=== PATIENT | female | born 1980 | race Caucasian/White ===

== ENCOUNTER 2016-05-12 15:33 | Outpatient (CLI) | payer OTHER, MEDICAID ==
--- NOTE | 2016-05-12 16:37 | Non Stress Test Report ---
Non Stress Test Datetime Report Generated by CPN: 05/12/2016 16:36 INDICATION Indication for Study: Ordered by Provider Indication for Study (NST) Other: nst MONITORING Monitor Explained: Monitor Explained; Test Explained; Patient Verbalized Understanding Time on Monitor: 05/12/2016 16:00 Time off Monitor: 05/12/2016 16:30 NST Duration: 30 NST INTERVENTIONS NST Interventions: PO Hydration BABY A: [id number] BABY A Movement : Present Contraction Frequency : x1 FHR Baseline : 130 Accelerations : 15X15 Decelerations : None Variability : Moderate 6-25bpm NST Review: Meets Criteria for Reactive NST NST Review and Verified By : K Stephen RNC NST Results: Reactive NST REPORT Report Trigger: Send Report
== END 2016-05-12 16:43 | disposition home or self-care (01) ==
LOC: LC 15:33
PROVIDERS: ATTEND Obstetrics & Gynecology
PROC: 4A1HXCZ Monitoring of Products of Conception, Cardiac Rate, External Approach (ICD-10-PCS; principal; 2016-05-12)
DX: Z34.93 Encounter for supervision of normal pregnancy, unspecified, third trimester (principal); Z36 Encounter for antenatal screening of mother; Z3A.35 35 weeks gestation of pregnancy
CPT/HCPCS: 59025

== ENCOUNTER 2016-05-19 12:20 | Outpatient (CLI) | payer OTHER, MEDICAID | END 2016-05-19 12:55 | disposition home or self-care (01) | LOC: LC 12:20 | PROVIDERS: ATTEND Obstetrics & Gynecology | PROC: 4A1HXCZ Monitoring of Products of Conception, Cardiac Rate, External Approach (ICD-10-PCS; principal; 2016-05-19) | DX: Z34.93 Encounter for supervision of normal pregnancy, unspecified, third trimester (principal); Z36 Encounter for antenatal screening of mother; Z3A.38 38 weeks gestation of pregnancy | CPT/HCPCS: 59025 ==

== ENCOUNTER 2016-05-29 16:41 | Outpatient (CLI) | payer OTHER, MEDICAID ==
--- NOTE | 2016-05-29 17:21 | Non Stress Test Report ---
Non Stress Test Datetime Report Generated by CPN: 05/29/2016 17:21 DEMOGRAPHIC EGA NST: 36.2 INDICATION Indication for Study: Ordered by Provider Indication for Study: Ordered by Provider Indication for Study (NST) Other: repeat from office Indication for Study (NST) Other: nst for decreased movement VITAL SIGNS Temperature - NST: 98.1 MONITORING Monitor Explained: Monitor Explained; Test Explained; Patient Verbalized Understanding Monitor Explained: Monitor Explained; Test Explained; Patient Verbalized Understanding Time on Monitor: 05/29/2016 16:49 Time on Monitor: 05/19/2016 12:33 Time off Monitor: 05/29/2016 17:12 NST Duration: 23 NST INTERVENTIONS NST Interventions: PO Hydration; Reposition Patient NST Interventions: PO Hydration; Reposition Patient Physician Notified NST: Dr. Dickerson BABY A: [id number] BABY A Movement : Present Contraction Frequency : occassional Contraction Frequency : rare FHR Baseline : 125 FHR Baseline : 130 Accelerations : 15X15 Accelerations : 15X15 Decelerations : None Decelerations : None Variability : Moderate 6-25bpm Variability : Moderate 6-25bpm NST Review: Meets Criteria for Reactive NST NST Review and Verified By : Yi SAENZ NST Results: Reactive NST REPORT Report Trigger: Send Report
--- NOTE | 2016-05-29 20:29 | L&D Discharge Summary ---
OB Discharge Summary Datetime Report Generated by CPN: 05/29/2016 20:29 DISCHARGE DIAGNOSIS Diagnosis/Symptoms: Decreased Movement Diagnoses/Symptoms Other: GDM DIET/ACTIVITY/RESTRICTIONS Diet: Regular Activity: Normal Activity TEACHING/INSTRUCTIONS/REFERRALS Instructions Given To: patient Instructions Understood: Patient Verbalized Understanding Referrals: None Educational Materials- Other: follow up and movement discaussed DISCHARGE INFORMATION Discharged AMA: No Discharge Date/Time: 05/19/2016 12:53 Discharged To: Home Discharge Provider Name: C Pa CNM Accompanied By: and son Discharge Method: Ambulatory Condition: Stable FOLLOW UP INFORMATION Follow Up With: [facility] Follow Up On: As Scheduled Follow Up Phone Number: [facility] -
--- NOTE | 2016-06-04 22:47 | L&D General Admission ---
General Admit Datetime Report Generated by CPN: 06/04/2016 22:45 INFORMATION Patient Age: 35 (03/31/2016 15:57:QS system process) EDC: 06/24/2016 00:00 (05/29/2016 16:54:Dyan Bellavance, RNC) CARE Height (in): 61 (05/29/2016 17:21:QS system process) Height (in): 61 (05/19/2016 12:44:QS system process) Height (in): 61 (05/12/2016 16:39:QS system process) ALLERGIES Medication Allergies: No Known Allergies (05/12/2016) (05/12/2016 16:38:QS system process) DEMOGRAPHICS Address: [address] [place] [id number] (03/31/2016 15:57:QS system process) Zipcode: [address] (03/31/2016 15:57:QS system process) Home (03/31/2016 15:57:QS system process) N: [phone] (03/31/2016 15:57:QS system process) Next of Kin Name: NELLA LARSON (05/12/2016 15:33:QS system process) Next of Kin Name: PT SUSHIL (03/31/2016 15:57:QS system process) Next of Kin (05/12/2016 15:33:QS system process) Next of Kin (03/31/2016 15:57:QS system process) Next of Kin Relationship: OR (05/12/2016 15:33:QS system process) Next of Kin Relationship: UNK (03/31/2016 15:57:QS system process) Date of : 1980 (03/31/2016 15:57:QS system process) Marital Status: Single (05/12/2016 15:33:QS system process) Marital Status: Unknown (03/31/2016 15:57:QS system process) Sex: Female (03/31/2016 15:57:QS system process) Race: (05/12/2016 15:33:QS system process) Race: Unknown (03/31/2016 15:57:QS system process) Ethnicity: Non- or (05/12/2016 15:33:QS system process) Ethnicity: Unable to Obtain (03/31/2016 15:57:QS system process) Gnosticist: None (05/12/2016 15:33:QS system process)
--- NOTE | 2016-06-04 22:47 | L&D Discharge Summary ---
OB Discharge Summary Datetime Report Generated by CPN: 06/04/2016 22:45 DISCHARGE DIAGNOSIS Diagnosis/Symptoms: Decreased Movement Diagnoses/Symptoms Other: GDM Gestation: 36.2 DIET/ACTIVITY/RESTRICTIONS Diet: Regular Activity: Normal Activity TEACHING/INSTRUCTIONS/REFERRALS Instructions Given To: patient Instructions Understood: Patient Verbalized Understanding Referrals: None Educational Materials- Other: follow up and movement discaussed DISCHARGE INFORMATION Discharged AMA: No Discharge Date/Time: 05/19/2016 12:53 Discharged To: Home Discharge Provider Name: C Pa CNM Accompanied By: and son Discharge Method: Ambulatory Condition: Stable FOLLOW UP INFORMATION Follow Up With: [facility] Follow Up On: As Scheduled Follow Up Phone Number: [facility] -
--- NOTE | 2016-06-05 04:47 | L&D General Admission ---
General Admit Datetime Report Generated by CPN: 06/05/2016 04:45 INFORMATION Patient Age: 35 (03/31/2016 15:57:QS system process) EDC: 06/24/2016 00:00 (05/29/2016 16:54:Dyan Bellavance, RNC) CARE Height (in): 61 (05/29/2016 17:21:QS system process) Height (in): 61 (05/19/2016 12:44:QS system process) Height (in): 61 (05/12/2016 16:39:QS system process) ALLERGIES Medication Allergies: No Known Allergies (05/12/2016) (05/12/2016 16:38:QS system process) DEMOGRAPHICS Address: [address] [place] [id number] (03/31/2016 15:57:QS system process) Zipcode: [address] (03/31/2016 15:57:QS system process) Home (03/31/2016 15:57:QS system process) N: [phone] (03/31/2016 15:57:QS system process) Next of Kin Name: NELLA LARSON (05/12/2016 15:33:QS system process) Next of Kin Name: PT SUSHIL (03/31/2016 15:57:QS system process) Next of Kin (05/12/2016 15:33:QS system process) Next of Kin (03/31/2016 15:57:QS system process) Next of Kin Relationship: OR (05/12/2016 15:33:QS system process) Next of Kin Relationship: UNK (03/31/2016 15:57:QS system process) Date of : 1980 (03/31/2016 15:57:QS system process) Marital Status: Single (05/12/2016 15:33:QS system process) Marital Status: Unknown (03/31/2016 15:57:QS system process) Sex: Female (03/31/2016 15:57:QS system process) Race: (05/12/2016 15:33:QS system process) Race: Unknown (03/31/2016 15:57:QS system process) Ethnicity: Non- or (05/12/2016 15:33:QS system process) Ethnicity: Unable to Obtain (03/31/2016 15:57:QS system process) Buddhist: None (05/12/2016 15:33:QS system process)
--- NOTE | 2016-06-05 04:47 | L&D Discharge Summary ---
OB Discharge Summary Datetime Report Generated by CPN: 06/05/2016 04:45 DISCHARGE DIAGNOSIS Diagnosis/Symptoms: Decreased Movement Diagnoses/Symptoms Other: GDM Gestation: 36.2 DIET/ACTIVITY/RESTRICTIONS Diet: Regular Activity: Normal Activity TEACHING/INSTRUCTIONS/REFERRALS Instructions Given To: patient Instructions Understood: Patient Verbalized Understanding Referrals: None Educational Materials- Other: follow up and movement discaussed DISCHARGE INFORMATION Discharged AMA: No Discharge Date/Time: 05/19/2016 12:53 Discharged To: Home Discharge Provider Name: C Pa CNM Accompanied By: and son Discharge Method: Ambulatory Condition: Stable FOLLOW UP INFORMATION Follow Up With: [facility] Follow Up On: As Scheduled Follow Up Phone Number: [facility] -
--- NOTE | 2016-06-05 10:47 | L&D General Admission ---
General Admit Datetime Report Generated by CPN: 06/05/2016 10:45 INFORMATION Patient Age: 35 (03/31/2016 15:57:QS system process) EDC: 06/24/2016 00:00 (05/29/2016 16:54:Dyan Bellavance, RNC) CARE Height (in): 61 (05/29/2016 17:21:QS system process) Height (in): 61 (05/19/2016 12:44:QS system process) Height (in): 61 (05/12/2016 16:39:QS system process) ALLERGIES Medication Allergies: No Known Allergies (05/12/2016) (05/12/2016 16:38:QS system process) DEMOGRAPHICS Address: [address] [place] [id number] (03/31/2016 15:57:QS system process) Zipcode: [address] (03/31/2016 15:57:QS system process) Home (03/31/2016 15:57:QS system process) N: [phone] (03/31/2016 15:57:QS system process) Next of Kin Name: NELLA LARSON (05/12/2016 15:33:QS system process) Next of Kin Name: PT SUSHIL (03/31/2016 15:57:QS system process) Next of Kin (05/12/2016 15:33:QS system process) Next of Kin (03/31/2016 15:57:QS system process) Next of Kin Relationship: OR (05/12/2016 15:33:QS system process) Next of Kin Relationship: UNK (03/31/2016 15:57:QS system process) Date of : 1980 (03/31/2016 15:57:QS system process) Marital Status: Single (05/12/2016 15:33:QS system process) Marital Status: Unknown (03/31/2016 15:57:QS system process) Sex: Female (03/31/2016 15:57:QS system process) Race: (05/12/2016 15:33:QS system process) Race: Unknown (03/31/2016 15:57:QS system process) Ethnicity: Non- or (05/12/2016 15:33:QS system process) Ethnicity: Unable to Obtain (03/31/2016 15:57:QS system process) Shinto: None (05/12/2016 15:33:QS system process)
--- NOTE | 2016-06-05 10:47 | L&D Discharge Summary ---
OB Discharge Summary Datetime Report Generated by CPN: 06/05/2016 10:45 DISCHARGE DIAGNOSIS Diagnosis/Symptoms: Decreased Movement Diagnoses/Symptoms Other: GDM Gestation: 36.2 DIET/ACTIVITY/RESTRICTIONS Diet: Regular Activity: Normal Activity TEACHING/INSTRUCTIONS/REFERRALS Instructions Given To: patient Instructions Understood: Patient Verbalized Understanding Referrals: None Educational Materials- Other: follow up and movement discaussed DISCHARGE INFORMATION Discharged AMA: No Discharge Date/Time: 05/19/2016 12:53 Discharged To: Home Discharge Provider Name: C Pa CNM Accompanied By: and son Discharge Method: Ambulatory Condition: Stable FOLLOW UP INFORMATION Follow Up With: [facility] Follow Up On: As Scheduled Follow Up Phone Number: [facility] -
== END 2016-05-29 17:15 | disposition home or self-care (01) ==
LOC: LC 16:41
PROVIDERS: ATTEND Obstetrics & Gynecology
PROC: 4A1HXCZ Monitoring of Products of Conception, Cardiac Rate, External Approach (ICD-10-PCS; principal; 2016-05-29)
DX: O24.419 Gestational diabetes mellitus in pregnancy, unspecified control (principal); Z3A.36 36 weeks gestation of pregnancy
CPT/HCPCS: 59025

== ENCOUNTER 2016-06-17 05:02 | Inpatient (IN) | payer MEDICAID, OTHER ==
[2016-06-16 12:25] LABS: ABSOLUTE LYMPHOCYTES (AUTO) 1.2 10^3/uL (0.5-4.7); ABSOLUTE MONOCYTES (AUTO) 0.5 10^3/uL (0.1-1.4); ABSOLUTE NEUT (AUTO) 5.9 10^3/uL (1.7-8.2); BASOPHILS % (AUTO) 0.3 % (0-2); EOSINOPHILS % (AUTO) 0.6 % (0-6); HEMATOCRIT 35.3 % (36.0-47.0); HEMOGLOBIN 12.2 g/dL (12.0-15.5); HGB HCT DIFFERENCE 1.3; LYMPHOCYTES % (AUTO) 15.3 % (13-45); MEAN CORPUSCULAR HEMOGLOBIN 32.1 pg (27.0-33.4); MEAN CORPUSCULAR HGB CONC 34.6 g/dL (32.0-36.0); MEAN CORPUSCULAR VOLUME 93 fl (80-97); MONOCYTES % (AUTO) 6.5 % (3-13); RED BLOOD COUNT 3.81 10^6/uL (3.72-5.28); RED CELL DISTRIBUTION WIDTH 13.1 % (11.5-14.0); SEGMENTED NEUTROPHILS % (AUTO) 77.3 % (42-78); WHITE BLOOD COUNT 7.6 10^3/uL (4.0-10.5)
[2016-06-16 12:31] LABS: APPEARANCE,URINE CLEAR; BILIRUBIN,URINE NEGATIVE (NEGATIVE); GLUCOSE, URINE NEGATIVE (NEGATIVE); KETONES,URINE NEGATIVE (NEGATIVE); LEUKOCYTE ESTERASE,URINE TRACE (NEGATIVE); NITRITE,URINE NEGATIVE (NEGATIVE); PROTEIN,URINE NEGATIVE (NEGATIVE); URINE SPECIFIC GRAVITY 1.011; UROBILINOGEN,URINE NEGATIVE mg/dL (<2.0)
[2016-06-16 12:48] LABS: URINE BARBITURATES SCREEN NEGATIVE; URINE METHADONE SCREEN NEGATIVE; URINE OPIATES LOW NEGATIVE; URINE PHENCYCLIDINE SCREEN NEGATIVE
[~2016-06-17 05:02] MED LIST: CEFAZOLIN 2 GM/D5W RTU 2 GM/50 ML RTUPB IV PRN; LIDOCAINE 0.5% INJ-PF (5 MG/ML) 50 ML SDV SUBCUT PRN; RINGERS SOLUTION,LACTATED 1,500 ML IV PRN
[2016-06-17] MEDS ORDERED: OXYTOCIN/NORMAL SALINE 20 UNIT/1,000 ML RTUINJ ONE (07:06)
[2016-06-17] MEDS ORDERED: MIDAZOLAM 2 MG/2 ML INJ ONE (07:06)
[2016-06-17] MEDS ORDERED: FENTANYL CITRATE INJ/PF 100 MCG/2 ML AMPUL ONE (07:06)
[2016-06-17] MEDS ORDERED: EPHEDRINE SULFATE INJ 50 MG/1 ML AMPULE ONE (07:06)
[2016-06-17] MEDS ORDERED: OXYTOCIN 10 UNIT/ML VIAL ONE (07:06)
[2016-06-17] MEDS ORDERED: ACETAMINOPHEN 100 ML IV ONE (07:07)
[2016-06-17] MEDS ORDERED: DIPHENHYDRAMINE HCL 50 MG/ML VIAL IV PRN (07:24)
[2016-06-17] MEDS ORDERED: MORPHINE SULFATE 10 MG/ML INJ IV PRN (07:24)
[2016-06-17] MEDS ORDERED: FENTANYL CITRATE INJ/PF 100 MCG/2 ML AMPUL IV PRN ×3 (07:24)
[2016-06-17] MEDS ORDERED: OXYCODONE-ACETAMINOPHEN 5-325 MG TABLET PO PRN ×4 (07:24→09:22)
[2016-06-17] MEDS ORDERED: MEPERIDINE HCL/PF INJ 25 MG/1 ML DISP.SYRIN IV PRN (07:24)
[2016-06-17] MEDS ORDERED: PROMETHAZINE HCL INJ 25 MG/1 ML VIAL IV PRN ×3 (07:24→09:22)
[2016-06-17] MEDS ORDERED: HYDROMORPHONE HCL INJ/PF 2 MG/ML AMPULE IV PRN (09:22)
[2016-06-17] MEDS ORDERED: MEASLES,MUMPS&RUBELLA VACC/PF 0.5 ML VIAL SUBCUT PRN (09:22)
[2016-06-17] MEDS ORDERED: SIMETHICONE 80 MG TAB.CHEW PO PRN (09:22)
[2016-06-17] MEDS ORDERED: DIPH/PERTUSS(ACELL)/TETANUS VAC/PF 0.5 ML SYR (>=10YO) IM PRN (09:22)
[2016-06-17] MEDS ORDERED: ACETAMINOPHEN 325 MG TABLET PO PRN (09:22)
[2016-06-17] MEDS ORDERED: OXYTOCIN/NORMAL SALINE 1,000 ML IV PRN (09:22)
--- NOTE | 2016-06-17 09:28 | Brief Operative Note ---
BRIEF OPERATIVE REPORT DATE OF SURGERY: 06/17/16 TIME OF SURGERY: 08:00 PREOPERATIVE DIAGNOSIS: A2GDM, PUND at 39+0ega, Undesired Fertility, H/o prior c /s POSTOPERATIVE DIAGNOSIS: PEDRO - delivered SURGEON: CHRISTIANO HATFIELD FINDINGS: normal bilateral tubes - Zeus BTL performed - hemostatic, normal bilateral ovaries, normal uterus, rectus diastasis and rectus muscle closure hemostatic and surgicel placed. Interceed placed over bladder flap closure. VFI cephalic, Apgars 7/8, weight 3505g COMPLICATIONS: none ESTIMATED BLOOD LOSS: 600ml TISSUE REMOVED OR ALTERED: bilateral portions of fallopian tubes - sent to pathology, placenta and cord not sent to pathology TECHNICAL PROCEDURE: RELTCS with [facility]
[2016-06-17] MEDS: DOCUSATE SODIUM 100 MG CAPSULE PO SCH ×2 (10:48→18:57)
[2016-06-17] MEDS: PRENATAL VITAMIN W-O CA NO5/FE FUMARATE/FA CAPSULE PO SCH (10:48)
--- NOTE | 2016-06-17 10:55 | PDOC DELIVERY SUMMARY ---
Delivery Summary - Maternal Hx : II Hx Para: I - now para II Hx # Term Pregnancies: 1 Hx # Pregnancies: 0 Hx Total # of Abortions (Sponateous & Elective): 0 Number of Living Children: 1 FREDDY: 06/24/16 Gestational Age: 39+0 Risk Factors: Previous , Gestational Diabetes Ruptured Membranes: AROM Fluids: Clear - Delivery Labor: Not In Labor Presentation: Vertex Heart Rate Monitoring: Done Pre-Operatively Uterine Contraction Monitoring: External Support Person Present: Yes Location: OR : Scheduled Placenta: Within Normal Limits Placenta Description: normal appearing placenta and cord Number of Vessels (Cord): 3 Nuchal Cord: No Delivery of Placenta Date: 06/17/16 Delivery of Placenta Time: 08:22 - Medications Type of Anesthesia:: Spinal - Intrapartum Medications Intrapartum Medications: pitocin 20 units - Infant Assess and Care Baby 1 Female Delivery of Date: 06/17/16 Delivery of Infant Time: 08:20 at 1 minute: 7 at 5 minutes: 8 Preprinted Number On Band: [id number] Skin to Skin: No - out of OR 919 To Nursery At: 08:29 Mode of Transport: Bassinet Infant Weight: 3505 kg Length: 21 in - Delivery Personnel Nursery RN: ALEXANDRU CHEN Nursery RN: IGNACIO UMAÑA MD: CHRISTIANO HATFIELD Generating Plant Superintendent: MELISA WINTER
[2016-06-17] MEDS ORDERED: KETOROLAC TROMETHAMINE 60 MG/2 ML SDV ONE (14:09)
[2016-06-17] MEDS ORDERED: DEXAMETHASONE SOD PHOSPHATE INJ 4 MG/1 ML VIAL ONE (14:09)
[2016-06-17] MEDS ORDERED: PHENYLEPHRINE HCL INJ/PF 10 MG/1 ML SDV ONE (14:09)
[2016-06-17] MEDS ORDERED: METOCLOPRAMIDE HCL INJ/PF 10 MG/2 ML SDV ONE (14:09)
[2016-06-17] MEDS ORDERED: ONDANSETRON HCL INJ/PF 4 MG/2 ML SDV ONE (14:09)
[2016-06-17] MEDS: KETOROLAC TROMETHAMINE INJ/PF 30 MG/1 ML SDV IV SCH ×2 (14:49→18:57)
[2016-06-17] MEDS: LACTATED RINGERS 1000 ML IV PRN ×2 (16:09→21:04)
[2016-06-17] MEDS ORDERED: RINGERS SOLUTION,LACTATED 500 ML IV PRN (20:42)
[2016-06-18] MEDS: KETOROLAC TROMETHAMINE INJ/PF 30 MG/1 ML SDV IV SCH (02:32)
[2016-06-18] MEDS: IBUPROFEN 800 MG TABLET PO SCH ×4 (05:02→23:55)
[2016-06-18 08:01] LABS: HEMATOCRIT 31.7 % (36.0-47.0); HEMOGLOBIN 10.7 g/dL (12.0-15.5); HGB HCT DIFFERENCE 0.4; MEAN CORPUSCULAR HEMOGLOBIN 31.5 pg (27.0-33.4); MEAN CORPUSCULAR HGB CONC 33.6 g/dL (32.0-36.0); MEAN CORPUSCULAR VOLUME 94 fl (80-97); RED BLOOD COUNT 3.38 10^6/uL (3.72-5.28); RED CELL DISTRIBUTION WIDTH 13.3 % (11.5-14.0); WHITE BLOOD COUNT 11.3 10^3/uL (4.0-10.5)
--- NOTE | 2016-06-18 09:14 | PDOC PROGRESS REPORT ---
Subjective-OB Subjective: Post Delivery Day: 35 year old. Denies any needs at this time Doing well, minimal incisional pain, OOB walking to BR, no flatus, breast feeding, scant lochia Physical Exam (OB) Vital Signs: Temp Pulse Resp BP Pulse Ox 98.0 F 74 18 114/63 98 06/18/16 04:43 06/18/16 04:43 06/18/16 04:43 06/18/16 04:43 06/18/16 04:43 Intake & Output 06/17/16 06/18/16 06/19/16 06:59 06:59 06:59 Intake Total 2024 Output Total 2399 Balance -375 Weight 110 kg - PIH/Pre-Eclampsia Headache: Absent Visual Changes: No - Dressing Removed: No Incision: Open Closure Type: Surgical Glue - Lochia Lochia Amount: Small 10-25 ml Lochia Color: Rubra/Red - Abdomen Description: Soft, Round Hernia Present: No Fundal Description: Firm, Midline Fundal Height: u/u - u/2 Objective-Diagnostic Laboratory: 06/18/16 07:05 06/18/16 07:05 WBC 11.3 H RBC 3.38 L Hgb 10.7 L Hct 31.7 L MCV 94 MCH 31.5 MCHC 33.6 RDW 13.3 Plt Count 164 Assessment and Plan(PN) - Assessment and Plan (1) Gestational diabetes mellitus Qualifiers: Gestational diabetes mellitus control: oral hypoglycemic-controlled Trimester: second trimester Qualified Code(s): O24.415 - Gestational diabetes mellitus in , controlled by oral hypoglycemic drugs Is this a current diagnosis for this admission?: Yes (2) Obesity complicating Qualifiers: Trimester: first trimester Qualified Code(s): O99.211 - Obesity complicating , first trimester Is this a current diagnosis for this admission?: Yes (3) Status post repeat low transverse section Is this a current diagnosis for this admission?: Yes - Disposition Anticipated Discharge: Home Within: within 24 hours
[2016-06-18] MEDS: DOCUSATE SODIUM 100 MG CAPSULE PO SCH ×2 (09:50→17:12)
[2016-06-18] MEDS: PRENATAL VITAMIN W-O CA NO5/FE FUMARATE/FA CAPSULE PO SCH (09:50)
[2016-06-19] MEDS: IBUPROFEN 800 MG TABLET PO SCH ×2 (05:06→17:12)
--- NOTE | 2016-06-19 08:30 | PDOC PROGRESS REPORT ---
Subjective-OB Subjective: Post Delivery Day: 35 year old. Denies any needs at this time. Ready to go home. Physical Exam (OB) Vital Signs: Temp Pulse Resp BP Pulse Ox 98.6 F 83 17 118/78 99 06/19/16 07:13 06/19/16 07:13 06/19/16 07:13 06/19/16 07:13 06/19/16 07:13 Intake & Output 06/18/16 06/19/16 06/20/16 06:59 06:59 06:59 Intake Total 2024 Output Total 0 Balance -375 - PIH/Pre-Eclampsia Clonus: Negative Headache: Absent Visual Changes: No - Dressing Removed: No Incision: Open Closure Type: Surgical Glue - Lochia Lochia Amount: Scant < 10 ml Lochia Color: Rubra/Red - Abdomen Description: Soft, Round Hernia Present: No Bowel Sounds: Normoactive Flatus Presence: Present Stool: No Fundal Description: Firm, Midline Fundal Height: u/u - u/2 Objective-Diagnostic Laboratory: 06/18/16 07:05 Assessment and Plan(PN) - Disposition Anticipated Discharge: Home
--- NOTE | 2016-06-19 09:20 | PDOC DISCHARGE SUMMARY ---
Final Diagnosis Discharge Date: 06/19/16 - Final Diagnosis (1) Gestational diabetes mellitus Is this a current diagnosis for this admission?: Yes (2) Obesity complicating Is this a current diagnosis for this admission?: Yes (3) Positive GBS test Is this a current diagnosis for this admission?: Yes (4) Status post repeat low transverse section Is this a current diagnosis for this admission?: Yes (5) Vitamin D deficiency Is this a current diagnosis for this admission?: Yes Discharge Data - Discharge Medication Home Medications: Vit #76/Iron,Carb/FA [Prenatabs Rx Tablet] 1 tab PO DAILY 05/12/16 Docusate Sodium [Colace 100 mg Capsule] 100 mg PO BID #30 capsule 06/19/16 Ibuprofen [Motrin 800 mg Tablet] 800 mg PO Q6 #30 tablet 06/19/16 Oxycodone HCl/Acetaminophen [Percocet 5-325 mg Tablet] 1 tab PO Q4HP PRN #20 tablet 06/19/16 Gestational Age: 39 wks Reason(s) for Admission: Ceasarean Section-Repeat, Gestional Diabetes Procedures: NST, Ultrasound Intrapartum Procedure(s): : Low Cervical, Transverse - Data Baby 1 Female at 1 minute: 7 at 5 minutes: 8 Weight: 3505 kg Home with Mother: Yes Complications: No - Diagnosis Test Laboratory: Temp Pulse Resp BP Pulse Ox 98.6 F 83 17 118/78 99 06/19/16 07:13 06/19/16 07:13 06/19/16 07:13 06/19/16 07:13 06/19/16 07:13 06/16/16 06/16/16 06/18/16 11:45 11:50 07:05 RBC 3.81 3.38 L Hgb 12.2 10.7 L Hct 35.3 L 31.7 L Urine Opiates Screen NEGATIVE - Discharge information/Instructions Discharge Activity: Activity As Tolerated, Balance Activity w/Rest, No Driving, No Lifting Over 10 Pounds, No Lifting/Push/Pulling, Non-Ambulatory Child, Pelvic Rest, Slowly Increase Activity, No tub bath Discharge Diet: Regular Disposition: HOME, SELF-CARE Follow up with: [facility] in: 1, Weeks
[2016-06-19] MEDS: DOCUSATE SODIUM 100 MG CAPSULE PO SCH (17:11)
[2016-06-19 17:12] VITALS: BP 118/74
== END 2016-06-19 18:51 | disposition home or self-care (01) | DRG 766 ==
LOC: 2S 05:02
PROVIDERS: ADMIT Student in an Organized Health Care Education/Training Program; ATTEND Student in an Organized Health Care Education/Training Program
PROC: 0UB70ZZ Excision of Bilateral Fallopian Tubes, Open Approach (ICD-10-PCS; 2016-06-17)
PROC: 10D00Z1 Extraction of Products of Conception, Low, Open Approach (ICD-10-PCS; principal; 2016-06-17 07:45)
DX: O34.211 Maternal care for low transverse scar from previous cesarean delivery (principal); Z37.0 Single live birth; O24.425 Gestational diabetes mellitus in childbirth, controlled by oral hypoglycemic drugs; O99.824 Streptococcus B carrier state complicating childbirth; O99.214 Obesity complicating childbirth; O75.89 Other specified complications of labor and delivery; E55.9 Vitamin D deficiency, unspecified; Z3A.39 39 weeks gestation of pregnancy; Z68.37 Body mass index [BMI] 37.0-37.9, adult; Z30.2 Encounter for sterilization
CPT/HCPCS: 1961; 36415; 59025; 80307; 81001; 82962; 85025; 85027; 86850; 86900; 86901; 88302; 90715; 94799; C1765; J0131; J1100; J1170; J1885; J2250; J2370; J2405; J2590; J2765; J3010; J3490; J7120

== ENCOUNTER 2016-11-17 14:54 | Emergency (ER) | payer MEDICAID, OTHER ==
[2016-11-17] MEDS ORDERED: SULFAMETHOXAZOLE/TRIMETHOPRIM 800-160 MG TABLET PO ONE (15:37)
[2016-11-17] MEDS ORDERED: CEPHALEXIN 500 MG CAPSULE PO ONE (15:37)
--- NOTE | 2016-11-17 15:41 | ER Document Report ---
HPI - HPI Patient complains to provider of: Right hand pain Onset: Other - 3 weeks Onset/Duration: Persistent Quality of pain: Achy Pain Level: 2 Context: Patient complains of tender nodule the palmar surface of right hand for the past 3 weeks. 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 Patient states she poked a needle in the nodule about a week ago. Patient denies any fever. Patient is right-hand dominant. Associated Symptoms: Other - Right hand pain Exacerbated by: Movement Relieved by: Denies Similar symptoms previously: No Recently seen / treated by doctor: No - ROS ROS below otherwise negative: Yes Systems Reviewed and Negative: Yes All other systems reviewed and negative - CONSTITUTIONAL Constitutional: DENIES: Fever, Chills - NEURO Neurology: DENIES: Weakness - MUSCULOSKELETAL Musculoskeletal: REPORTS: Extremity pain - DERM Skin Color: Normal Notes: Tender nodule to hand Past Medical History - General Information source: Patient - Social History Smoking Status: Never Smoker Frequency of alcohol use: None Drug Abuse: None Occupation: Beautician Lives with: Family Family History: Reviewed & Not Pertinent - Medical History Medical History: Negative Renal/ Medical History: Denies: Hx Peritoneal Dialysis Past Surgical History: Reports: Hx Section Vertical Provider Document - CONSTITUTIONAL Agree With Documented VS: Yes Exam Limitations: No Limitations General Appearance: WD/WN, No Apparent Distress - INFECTION CONTROL TRAVEL OUTSIDE OF THE [place] IN LAST 30 DAYS: No - HEENT HEENT: Atraumatic, Normocephalic - NECK Neck: Normal Inspection - RESPIRATORY Respiratory: No Respiratory Distress O2 Sat by Pulse Oximetry: 97 - CARDIOVASCULAR Pulses: Normal: Radial - MUSCULOSKELETAL/EXTREMETIES Musculoskeletal/Extremeties: MAEW, FROM, Tender - Tenderness to the palmar surface of right hand involving .5 cm mobile nodular lesion - NEURO Level of Consciousness: Awake, Alert, Appropriate Motor/Sensory: No Motor Deficit - DERM Integumentary: Warm, Dry. negative: Abscess Notes: Normal skin color and temperature to nodular lesion in the palmar surface of right hand, no concern for drainable abscess at this time. No lymphangitis. No obvious foreign body Course - Re-evaluation Re-evalutation: 11/17/[address] Leiva regarding patient presentation, agrees with discharge plan of care and treating patient with antibiotics at this time. - Vital Signs Vital signs: Temp Pulse Resp BP Pulse Ox 98.7 F 73 20 124/90 H 97 11/17/16 14:58 11/17/16 14:58 11/17/16 14:58 11/17/16 14:58 11/17/16 14:58 Discharge - Discharge Clinical Impression: Hand pain, right, concern about hair splinter Condition: Stable Disposition: HOME, SELF-CARE Instructions: Cephalexin ([facility]), Retained Subcutaneous Foreign Object ([facility]), Trimethoprim-Sulfa ([facility]) Additional Instructions: Return immediately for any new or worsening symptoms Followup with hand surgeon, call tomorrow to make a followup appointment Prescriptions: Cephalexin Monohydrate [Keflex 500 mg Capsule] 500 mg PO Q6H 5 Days capsule Naproxen [Naprosyn 250 Nmg Tablet] 1 tab PO BID #14 tablet Sulfamethoxazole/Trimethoprim [Bactrim Ds Tablet] 1 each PO BID #20 tablet Referrals: RENEE COLE DO [ACTIVE STAFF] - Follow up tomorrow
[2016-11-17 16:20] VITALS: BP 117/76
== END 2016-11-17 16:10 | disposition home or self-care (01) ==
LOC: ER 14:54
DX: M79.641 Pain in right hand (principal)
CPT/HCPCS: 99283

== ENCOUNTER 2017-02-06 12:12 | Emergency (ER) | payer OTHER ==
[2017-02-06 12:18] VITALS: BP 118/81
--- NOTE | 2017-02-06 12:24 | ER Document Report ---
ED Medical Screen (RME) - General Chief Complaint: Rectal Pain Stated Complaint: RECTAL PAIN Time Seen by Provider: 02/06/17 12:22 Notes: 36-year-old female patient reports 1 week history of painful swelling at the rectum. She thinks it is a hemorrhoid. There is been no bleeding. She has tried hemorrhoid ointment without benefit, it has been getting worse. I have greeted and performed a rapid initial assessment of this patient. A comprehensive ED assessment and evaluation of the patient, analysis of test results and completion of the medical decision making process will be conducted by additional ED providers. TRAVEL OUTSIDE OF THE [place] IN LAST 30 DAYS: No - Related Data Allergies/Adverse Reactions: No Known Allergies Allergy (Verified 02/06/17 12:13) Past Medical History Renal/ Medical History: Denies: Hx Peritoneal Dialysis Past Surgical History: Reports: Hx Section Physical Exam - Vital signs Vitals: Temp Pulse Resp BP Pulse Ox 98.3 F 64 16 118/81 96 02/06/17 12:18 02/06/17 12:18 02/06/17 12:18 02/06/17 12:18 02/06/17 12:18 Course - Vital Signs Vital signs: Temp Pulse Resp BP Pulse Ox 98.3 F 64 16 118/81 96 02/06/17 12:18 02/06/17 12:18 02/06/17 12:18 02/06/17 12:18 02/06/17 12:18
[2017-02-06] MEDS ORDERED: HYDROCORTISONE 1% CREAM 28.35 GM TP ONE (12:50)
[2017-02-06] MEDS ORDERED: HYDROCORTISONE ACETATE 25 MG SUPP.RECT PR ONE (12:50)
--- NOTE | 2017-02-06 12:52 | ER Document Report ---
ED GI Bleed / Rectal Pain - General Chief Complaint: Rectal Pain Stated Complaint: RECTAL PAIN Time Seen by Provider: 02/06/17 12:22 Mode of Arrival: Ambulatory Information source: Patient Notes: Patient is a 36-year-old female who presents to the ER today for 4 days of rectal pain, first just been having bowel movements, now constantly. Patient states that she has been having normal bowel movements, not hard and not soft, no diarrhea. She denies any bleeding from the rectum or with bowel movements. She states that she thinks she may have a hemorrhoid. She has been trying over- the-counter hemorrhoid relief without resolve. TRAVEL OUTSIDE OF THE [place] IN LAST 30 DAYS: No - Related Data Allergies/Adverse Reactions: No Known Allergies Allergy (Verified 02/06/17 12:13) Past Medical History - General Information source: Patient - Social History Smoking Status: Never Smoker Chew tobacco use (# tins/day): No Frequency of alcohol use: Rare Drug Abuse: None Family History: Reviewed & Not Pertinent Patient has suicidal ideation: No Patient has homicidal ideation: No Renal/ Medical History: Denies: Hx Peritoneal Dialysis Past Surgical History: Reports: Hx Section Review of Systems - Review of Systems Constitutional: No symptoms reported EENT: No symptoms reported Cardiovascular: No symptoms reported Respiratory: No symptoms reported Gastrointestinal: See HPI Genitourinary: No symptoms reported Female Genitourinary: No symptoms reported Musculoskeletal: No symptoms reported Skin: No symptoms reported Hematologic/Lymphatic: No symptoms reported Neurological/Psychological: No symptoms reported Physical Exam - Vital signs Vitals: Temp Pulse Resp BP Pulse Ox 98.3 F 64 16 118/81 96 02/06/17 12:18 02/06/17 12:18 02/06/17 12:18 02/06/17 12:18 02/06/17 12:18 - Notes Notes: PHYSICAL EXAMINATION: GENERAL: Well-appearing and in no acute distress. HEAD: Atraumatic, normocephalic. EYES: Pupils equal round and reactive to light, extraocular movements intact, sclera anicteric, conjunctiva are normal. NECK: Normal range of motion, supple without lymphadenopathy LUNGS: CTAB and equal. No wheezes rales or rhonchi. HEART: Regular rate and rhythm without murmurs ABDOMEN: Soft, no tenderness. No guarding, no rebound BACK: no vertebral tenderness, normal ROM GI/: no CVA tenderness Rectal: 2 small external hemorrhoids noted, fleshy in appearance, not thrombosed , not tender to palpation EXTREMITIES: Normal range of motion, no pitting edema. No cyanosis. NEUROLOGICAL: Cranial nerves grossly intact. Normal sensory/motor exams. PSYCH: Normal mood, normal affect. SKIN: Warm, Dry, normal turgor, no rashes or lesions noted Course - Re-evaluation Re-evalutation: 02/06/17 17:01 Patient has hemorrhoids on exam, will start her on hydrocortisone suppositories as well as hydrocortisone topical. I have also advised that she take stool softeners. - Vital Signs Vital signs: Temp Pulse Resp BP Pulse Ox 98.3 F 64 16 118/81 96 02/06/17 12:18 02/06/17 12:18 02/06/17 12:18 02/06/17 12:18 02/06/17 12:18 Discharge - Discharge Clinical Impression: Hemorrhoids, external Condition: Stable Disposition: HOME, SELF-CARE Additional Instructions: Return immediately for any new or worsening symptoms. Follow up with primary care provider, call tomorrow to make followup appointment. Prescriptions: Hydrocortisone Acetate 25 mg RC BID #28 supp.rect Hydrocortisone Acetate 28.4 gm TP BID #1 cream..g.
== END 2017-02-06 13:21 | disposition home or self-care (01) ==
LOC: ER 12:12
DX: K64.4 Residual hemorrhoidal skin tags (principal); K62.89 Other specified diseases of anus and rectum
CPT/HCPCS: 99283; J3490 ×2

== ENCOUNTER → 2017-03-01 | Emergency (ER) | payer MEDICAID, OTHER ==
--- NOTE | 2017-03-02 09:49 | RADIOLOGY REPORT (SQ) ---
EXAM DESCRIPTION: FOOT RIGHT COMPLETE COMPLETED DATE/TIME: 03/02/2017 3:11 am REASON FOR STUDY: 3RD TOE PAIN, FALL COMPARISON: None. NUMBER OF VIEWS: Three views. TECHNIQUE: AP, lateral and oblique without weight bearing radiographic images acquired of the right foot. LIMITATIONS: None. FINDINGS: MINERALIZATION: Normal. BONES: No acute fracture or dislocation. No worrisome bone lesions. Posterior and plantar calcaneal s purring. JOINTS: No erosions. No mavis-articular osteopenia. No chondrocalcinosis. SOFT TISSUES: No swelling. No calcifications. OTHER: No other significant finding. IMPRESSION: CALCANEAL SPURRING. NO ACUTE OSSEOUS ABNORMALITY. TECHNICAL DOCUMENTATION: JOB ID: [id number] [employer]- All Rights Reserved
== END ==
LOC: ER 12:50
DX: S90.121A Contusion of right lesser toe(s) without damage to nail, initial encounter (principal); S90.414A Abrasion, right lesser toe(s), initial encounter; J06.9 Acute upper respiratory infection, unspecified; R05 Cough; R09.81 Nasal congestion; W22.03XA Walked into furniture, initial encounter
CPT/HCPCS: 99283

== ENCOUNTER 2017-05-31 09:50 | Emergency (ER) | payer OTHER ==
[2017-05-31 10:24] VITALS: BP 116/76
--- NOTE | 2017-05-31 10:29 | ER Document Report ---
ED GI/ - General Chief Complaint: Flank Pain Stated Complaint: LEFT SIDE FLANK PLAIN Time Seen by Provider: 05/31/17 10:29 TRAVEL OUTSIDE OF THE [place] IN LAST 30 DAYS: No - Related Data Allergies/Adverse Reactions: No Known Allergies Allergy (Verified 02/06/17 12:13) Past Medical History - Social History Family History: Reviewed & Not Pertinent Renal/ Medical History: Denies: Hx Peritoneal Dialysis Past Surgical History: Reports: Hx Section Physical Exam - Vital signs Vitals: Temp Pulse Resp BP Pulse Ox 98.8 F 80 18 116/76 99 05/31/17 10:21 05/31/17 10:21 05/31/17 10:21 05/31/17 10:21 05/31/17 10:21 Course - Vital Signs Vital signs: Temp Pulse Resp BP Pulse Ox 98.8 F 80 18 116/76 99 05/31/17 10:21 05/31/17 10:21 05/31/17 10:21 05/31/17 10:21 05/31/17 10:21
[2017-05-31 10:30] LABS: APPEARANCE,URINE CLEAR; BILIRUBIN,URINE NEGATIVE (NEGATIVE); COLOR,URINE YELLOW; GLUCOSE, URINE NEGATIVE (NEGATIVE); KETONES,URINE NEGATIVE (NEGATIVE); LEUKOCYTE ESTERASE,URINE NEGATIVE (NEGATIVE); NITRITE,URINE NEGATIVE (NEGATIVE); PROTEIN,URINE NEGATIVE (NEGATIVE); URINE SPECIFIC GRAVITY 1.021; UROBILINOGEN,URINE NEGATIVE mg/dL (<2.0)
--- NOTE | 2017-05-31 10:52 | ER Document Report ---
HPI - HPI Patient complains to provider of: left low back pain Onset: This morning Pain Level: 5 Context: 36 yo female woke up and developed left low back pain, worse with movement. Motrin helped some. NO abd. pain, fever, chills, dysuria, nv/d/. No saddle anesthesia or readiculopathy. Associated Symptoms: None Exacerbated by: Movement Relieved by: Denies - ROS ROS below otherwise negative: Yes Systems Reviewed and Negative: Yes All other systems reviewed and negative - DERM Skin Color: Normal Past Medical History - General Information source: Patient - Social History Smoking Status: Never Smoker Chew tobacco use (# tins/day): No Frequency of alcohol use: None Drug Abuse: None Lives with: Family Family History: Reviewed & Not Pertinent Patient has suicidal ideation: No Patient has homicidal ideation: No - Medical History Medical History: Negative Renal/ Medical History: Denies: Hx Peritoneal Dialysis Past Surgical History: Reports: Hx Section, Hx Tubal Ligation Vertical Provider Document - CONSTITUTIONAL Agree With Documented VS: Yes Exam Limitations: No Limitations General Appearance: No Apparent Distress - INFECTION CONTROL TRAVEL OUTSIDE OF THE [place] IN LAST 30 DAYS: No - HEENT HEENT: Normocephalic - NECK Neck: Supple - RESPIRATORY Respiratory: Breath Sounds Normal, No Respiratory Distress - CARDIOVASCULAR Cardiovascular: Regular Rate, Regular Rhythm - GI/ABDOMEN Gastrointestinal: Abdomen Soft, Abdomen Non-Tender, No Organomegaly, Normal Bowel Sounds - BACK Back: Normal Inspection Notes: non tender spinous process - MUSCULOSKELETAL/EXTREMETIES Musculoskeletal/Extremeties: MAEW, FROM, Tender - left SI joint into buttocks - NEURO Level of Consciousness: Awake, Alert Motor/Sensory: No Motor Deficit, No Sensory Deficit Deep Tendon Reflexes: 2+ - samantha patellar and ankle - DERM Integumentary: Warm, Dry, No Rash Course - Re-evaluation Re-evalutation: 05/31/17 10:49 urinarlysis 1 wbc, 1 rbc, no signs of infection or stone. pt is tender over the SI joint on the left. - Vital Signs Vital signs: Temp Pulse Resp BP Pulse Ox 98.8 F 80 18 116/76 99 05/31/17 10:21 05/31/17 10:21 05/31/17 10:21 05/31/17 10:21 05/31/17 10:21 - Laboratory Laboratory results interpreted by me: 05/31/17 09:58 Urine Blood SMALL H Discharge - Discharge Clinical Impression: left sacroiliac pain Condition: Good Disposition: HOME, SELF-CARE Instructions: Acetaminophen, Anti-Inflammatory Medication ([facility]), Muscle Relaxers ([facility]), Muscle Strain ([facility]), Warm Packs ([facility]) Additional Instructions: Warm compress Stretching as discussed See your doctor if symptoms persist or to the emergency room if they get worse Motrin Tylenol Flexeril as a muscle relaxer Prescriptions: Ibuprofen [Motrin 800 mg Tablet] 800 mg PO Q8HP PRN #30 tablet PRN Reason: Cyclobenzaprine HCl [Flexeril 10 Mg Tablet] 10 mg PO TIDP PRN #20 tablet PRN Reason: Forms: Return to Work
== END 2017-05-31 11:00 | disposition home or self-care (01) ==
LOC: ER 09:50
DX: M53.3 Sacrococcygeal disorders, not elsewhere classified (principal)
CPT/HCPCS: 81001; 81025; 99284

== ENCOUNTER 2017-09-09 23:00 | Emergency (ER) | payer OTHER ==
[2017-09-09 23:41] LABS: APPEARANCE,URINE CLEAR; BILIRUBIN,URINE NEGATIVE (NEGATIVE); CALCIUM OXALATE CRYSTALS,URINE MANY /HPF; COLOR,URINE YELLOW; GLUCOSE, URINE NEGATIVE (NEGATIVE); KETONES,URINE NEGATIVE (NEGATIVE); LEUKOCYTE ESTERASE,URINE NEGATIVE (NEGATIVE); NITRITE,URINE NEGATIVE (NEGATIVE); PROTEIN,URINE 100 mg/dL (NEGATIVE); URINE SPECIFIC GRAVITY 1.027; UROBILINOGEN,URINE NEGATIVE mg/dL (<2.0)
[2017-09-09 23:42] LABS: ABSOLUTE EOSINOPHILS # (AUTO) 0.1 10^3/uL (0.0-0.6); ABSOLUTE LYMPHOCYTES (AUTO) 2.1 10^3/uL (0.5-4.7); ABSOLUTE MONOCYTES (AUTO) 0.6 10^3/uL (0.1-1.4); ABSOLUTE NEUT (AUTO) 4.5 10^3/uL (1.7-8.2); BASOPHILS % (AUTO) 0.5 % (0-2); EOSINOPHILS % (AUTO) 1.8 % (0-6); HEMATOCRIT 39.2 % (36.0-47.0); HEMOGLOBIN 13.3 g/dL (12.0-15.5); LYMPHOCYTES % (AUTO) 28.1 % (13-45); MEAN CORPUSCULAR HEMOGLOBIN 30.4 pg (27.0-33.4); MEAN CORPUSCULAR HGB CONC 33.8 g/dL (32.0-36.0); MEAN CORPUSCULAR VOLUME 90 fl (80-97); MONOCYTES % (AUTO) 8.3 % (3-13); PLATELET COUNT 248 10^3/uL (150-450); RED BLOOD COUNT 4.36 10^6/uL (3.72-5.28); SEGMENTED NEUTROPHILS % (AUTO) 61.3 % (42-78); TOTAL CELLS COUNTED % (AUTO) 100 %; WHITE BLOOD COUNT 7.3 10^3/uL (4.0-10.5)
[2017-09-09 23:54] LABS: ANION GAP 13 (5-19); BLOOD UREA NITROGEN 16 mg/dL (7-20); CALCIUM 9.4 mg/dL (8.4-10.2); CARBON DIOXIDE 25 mmol/L (22-30); CHLORIDE 106 mmol/L (98-107); GLUCOSE 121 mg/dL (75-110); LIPASE 81.6 U/L (23-300); POTASSIUM 4.2 mmol/L (3.6-5.0); SODIUM 144.1 mmol/L (137-145)
[2017-09-09] MEDS ORDERED: MORPHINE SULFATE 10 MG/ML INJ IV ONE (23:58)
[2017-09-09] MEDS ORDERED: ONDANSETRON HCL INJ/PF 4 MG/2 ML SDV IV ONE (23:58)
--- NOTE | 2017-09-10 00:27 | ER Document Report ---
ED GI/ - General Mode of Arrival: Ambulatory Information source: Patient TRAVEL OUTSIDE OF THE [place] IN LAST 30 DAYS: No <GOPAL BOWERS - Last Filed: 09/10/17 01:34> <STAR BLACKWELL - Last Filed: 09/10/17 01:43> - General Chief Complaint: Flank Pain Stated Complaint: BACK PAIN Time Seen by Provider: 09/09/17 23:39 Notes: Patient is a 37 year old female presenting to the emergency department complaining of right flank pain onset 4 days ago. Patient describes her pain as a sharp knife running from her right flank down to her hip. She also states the pain radiates into her right abdomen. She also complains of vomiting 2x on Thursday, urinary frequency and pain with urination. Patient denies fevers or diarrhea. Patient states her menstrual period just ended. (GOPAL BOWERS) - Related Data Allergies/Adverse Reactions: No Known Allergies Allergy (Verified 05/31/17 10:46) Past Medical History - General Information source: Patient - Social History Smoking Status: Never Smoker Chew tobacco use (# tins/day): No Frequency of alcohol use: None Drug Abuse: None Family History: Reviewed & Not Pertinent Patient has suicidal ideation: No Patient has homicidal ideation: No Past Surgical History: Reports: Hx Section, Hx Tubal Ligation <GOPAL BOWERS - Last Filed: 09/10/17 01:34> Review of Systems - Review of Systems Constitutional: No symptoms reported EENT: No symptoms reported Cardiovascular: No symptoms reported Respiratory: No symptoms reported Gastrointestinal: See HPI, Abdominal pain, Vomiting Genitourinary: See HPI, Frequency, Flank pain, Pain Female Genitourinary: No symptoms reported Musculoskeletal: No symptoms reported Skin: No symptoms reported Hematologic/Lymphatic: No symptoms reported Neurological/Psychological: No symptoms reported -: Yes All other systems reviewed and negative <GOPAL BOWERS - Last Filed: 09/10/17 01:34> Physical Exam - General General appearance: Alert, Other - Appears uncomfortable - HEENT Head: Normocephalic, Atraumatic Eyes: Normal Conjunctiva: Normal Extraocular movements intact: Yes Pupils: PERRL Mucous membranes: Normal Neck: Normal - Respiratory Respiratory status: No respiratory distress Chest status: Nontender Breath sounds: Normal Chest palpation: Normal - Cardiovascular Rhythm: Regular Heart sounds: Normal auscultation Murmur: No Friction rub: No Gallop: None auscultated - Abdominal Inspection: Normal Distension: No distension Bowel sounds: Normal Tenderness: Nontender Organomegaly: No organomegaly - Back Back: CVA tenderness - Right - Extremities General upper extremity: Normal ROM General lower extremity: Normal ROM - Neurological Neuro grossly intact: Yes Cognition: Normal Orientation: AAOx4 Danay Coma Scale Eye Opening: Spontaneous Cisco Coma Scale Verbal: Oriented Danay Coma Scale Motor: Obeys Commands Danay Coma Scale Total: 15 Speech: Normal - Psychological Associated symptoms: Normal affect, Normal mood - Skin Skin Temperature: Warm Skin Moisture: Dry Skin Color: Normal <GOPAL BOWERS - Last Filed: 09/10/17 01:34> - Vital signs Vitals: Temp Pulse Resp BP Pulse Ox 97.9 F 63 16 116/74 99 09/09/17 23:15 09/09/17 23:15 09/09/17 23:15 09/09/17 23:15 09/09/17 23:15 Course - Laboratory Result Diagrams: 09/09/17 23:35 09/09/17 23:35 <GOPAL BOWERS - Last Filed: 09/10/17 01:34> - Laboratory Result Diagrams: 09/09/17 23:35 09/09/17 23:35 - Diagnostic Test Radiology reviewed: Reports reviewed <STAR BLACKWELL - Last Filed: 09/10/17 01:43> - Re-evaluation Re-evalutation: 09/10/17 01:00 Patient updated on results of CT scan which is showing a 5 mm UVJ stone. Patient is feeling better with medications. States that she is comfortable going home and following up with urology as needed. She was offered a work note but states that she would like to try to go to work today. No evidence for infection. BUN and creatinine within normal limits. Patient will be discharged home with pain medication and nausea medicine. (STAR BLACKWELL) - Vital Signs Vital signs: Temp Pulse Resp BP Pulse Ox 97.9 F 63 16 116/74 99 09/09/17 23:15 09/09/17 23:15 09/09/17 23:15 09/09/17 23:15 09/09/17 23:15 - Laboratory Laboratory results interpreted by me: 09/09/17 09/09/17 23:11 23:35 Glucose 121 H Urine Protein 100 H Urine Blood LARGE H Discharge <GOPAL BOWERS - Last Filed: 09/10/17 01:34> <STAR BLACKWELL - Last Filed: 09/10/17 01:43> - Discharge Clinical Impression: Right ureteral stone Condition: Stable Disposition: HOME, SELF-CARE Instructions: Kidney Stone ([facility]) Additional Instructions: Please follow-up with a primary care doctor within the next week regarding your symptoms and diagnosis. Prescriptions: Hydrocodone/Acetaminophen [[place] 5-325 mg Tablet] 1 tab PO TID #20 tablet Ondansetron [Zofran Odt 4 mg Tablet] 1 - 2 tab PO Q4H PRN #20 tab.rapdis PRN Reason: For Nausea/Vomiting Referrals: GINGER PHILIPPE MD [MICHAEL CULLEN] - Follow up as needed Scribe Attestation: 09/10/17 01:43 I personally performed the services described in the documentation, reviewed and edited the documentation which was dictated to the scribe in my presence, and it accurately records my words and actions. (STAR BLACKWELL) Scribe Documentation - Scribe Written by Luis:: Luis Vargas, 09/10/2017 00:35 acting as scribe for :: June <GOPAL BOWERS - Last Filed: 09/10/17 01:34>
--- NOTE | 2017-09-10 01:04 | RADIOLOGY REPORT (SQ) ---
EXAM DESCRIPTION: CT ABDOMEN WITHOUT IV CONTRAST COMPLETED DATE/TME: 09/10/2017 00:00 CLINICAL HISTORY: 37 years, Female, R flank pain, nausea COMPARISON: None. TECHNIQUE: Axial CT images of the abdomen and pelvis were obtained without contrast. Sagittal and coronal reformats were performed. DLP 935 Images stored on PACS. All CT scanners at this facility use dose modulation, iterative reconstruction, and/or weight based dosing when appropriate to reduce radiation dose to as low as reasonably achievable (ALARA). [facility]: Dose Right [facility]: CareDose [facility]: Dose Right [facility]: Teradose 4D [facility]: Smart [employer] LIMITATIONS: None. FINDINGS: The lung bases are clear. The liver is hypodense. Cholelithiasis is noted. No pericholecystic fluid or pericholecystic inflammatory changes. The pancreas, spleen, and adrenal glands are unremarkable. There is a 5 mm stone near the right UVJ causing mild hydroureter and hydronephrosis. There are additional stones within the right kidney which measure up to 3 mm in size. There are nonobstructing stones within the left kidney which measure up to 5 mm in size. The urinary bladder is unremarkable. There is no intraperitoneal free air or fluid. There is no lymphadenopathy. The stomach and small bowel are unremarkable. There is no evidence of appendicitis. The colon is unremarkable. The uterus and adnexa are unremarkable. There are no lytic or blastic bone lesions IMPRESSION: 5 mm stone near the right UVJ causing mild hydroureter and hydronephrosis. Additional stones within the right kidney measuring up to 3 mm in size. Nonobstructing left-sided nephrolithiasis. Cholelithiasis. Fatty liver. TECHNICAL DOCUMENTATION: Quality ID # [id number]: Final reports with documentation of one or more dose reduction techniques (e.g., Automated exposure control, adjustment of the mA and/or kV according to patient size, use of iterative reconstruction technique) 2010 [employer]- All Rights Reserved
[2017-09-10] MEDS ORDERED: KETOROLAC TROMETHAMINE INJ/PF 30 MG/1 ML SDV IV ONE (01:05)
[2017-09-10] MEDS ORDERED: KETOROLAC TROMETHAMINE INJ/PF 30 MG/1 ML SDV ONE (01:07)
[2017-09-10] MEDS ORDERED: HYDROCODONE/ACETAMINOPHEN 5-325 MG (6 TAB/ER DISP) PO PRN (01:38)
[2017-09-10] MEDS ORDERED: ONDANSETRON ODT 4 MG TAB (6 TAB/ER DISP) PO PRN (01:39)
[2017-09-10 01:58] VITALS: BP 109/55
== END 2017-09-10 02:05 | disposition home or self-care (01) ==
LOC: ER 23:00
DX: N20.1 Calculus of ureter (principal); M54.9 Dorsalgia, unspecified; R10.9 Unspecified abdominal pain; Z98.51 Tubal ligation status
CPT/HCPCS: 99284; 96374; 96375; 36415; 83690; 85025; 81025; 80048; 81001; 84484; 76380; J1885; J2270; J2405

== ENCOUNTER 2018-11-30 16:14 | Emergency (ER) | payer MEDICAID, OTHER ==
[2018-11-30 16:22] VITALS: BP 138/87
--- NOTE | 2018-11-30 17:12 | ER Document Report ---
ED Medical Screen (RME) - General Stated Complaint: NOT FEELING WELL,WEAKNESS Time Seen by Provider: 11/30/18 17:01 Notes: Patient is a 38-year-old female who presents to the emergency department with a chief complaint of weakness. She states that she had a normal day today and around 130 when she was at work she felt like her blood sugar was low. She tried to drink some juice, but still felt lightheaded and felt like her speech was jumbled. Patient cannot recall any past family history of any strokes that she knows of. Denies any past medical history. Denies any medication use. Exam: Slow to respond. Generalized weakness with left greater than right. I have greeted and performed a rapid initial assessment of this patient. A comprehensive ED assessment and evaluation of the patient, analysis of test results and completion of medical decision making process will be conducted by an additional ED providers. TRAVEL OUTSIDE OF THE [place] IN LAST 30 DAYS: No - Related Data Allergies/Adverse Reactions: No Known Allergies Allergy (Verified 11/30/18 17:02) Past Medical History Renal/ Medical History: Denies: Hx Peritoneal Dialysis Past Surgical History: Reports: Hx Section, Hx Tubal Ligation Physical Exam - Vital signs Vitals: Temp Pulse BP Pulse Ox 98.9 F 82 138/87 H 97 11/30/18 16:21 11/30/18 16:21 11/30/18 16:21 11/30/18 16:21 Course - Vital Signs Vital signs: Temp Pulse Resp BP Pulse Ox 98.9 F 82 138/87 H 97 11/30/18 16:21 11/30/18 16:21 11/30/18 16:21 11/30/18 16:21
[2018-11-30 17:31] LABS: ABSOLUTE EOSINOPHILS # (AUTO) 0.2 10^3/uL (0.0-0.6); ABSOLUTE MONOCYTES (AUTO) 0.6 10^3/uL (0.1-1.4); ABSOLUTE NEUT (AUTO) 4.1 10^3/uL (1.7-8.2); BASOPHILS % (AUTO) 0.4 % (0-2); EOSINOPHILS % (AUTO) 2.7 % (0-6); HEMATOCRIT 39.7 % (36.0-47.0); HEMOGLOBIN 13.4 g/dL (12.0-15.5); LYMPHOCYTES % (AUTO) 29.3 % (13-45); MEAN CORPUSCULAR HEMOGLOBIN 30.5 pg (27.0-33.4); MEAN CORPUSCULAR HGB CONC 33.7 g/dL (32.0-36.0); MEAN CORPUSCULAR VOLUME 90 fl (80-97); MONOCYTES % (AUTO) 8.6 % (3-13); PLATELET COUNT 238 10^3/uL (150-450); RED CELL DISTRIBUTION WIDTH 13.1 % (11.5-14.0); TOTAL CELLS COUNTED % (AUTO) 100 %; WHITE BLOOD COUNT 6.9 10^3/uL (4.0-10.5)
--- NOTE | 2018-11-30 17:40 | RADIOLOGY REPORT (SQ) ---
EXAM DESCRIPTION: CHEST SINGLE VIEW COMPLETED DATE/TIME: 11/30/2018 5:31 pm REASON FOR STUDY: weakness COMPARISON: None. NUMBER OF VIEWS: One view. TECHNIQUE: Single frontal radiographic view of the chest acquired. LIMITATIONS: None. FINDINGS: LUNGS AND PLEURA: Small nodular density in the left perihilar region most likely represent s vessel on end. No consolidation. No effusions or pneumothorax. MEDIASTINUM AND HILAR STRUCTURES: No masses. Contour normal. HEART AND VASCULAR STRUCTURES: Heart normal in size. Normal vasculature. BONES: No acute findings. HARDWARE: None in the chest. OTHER: No other significant finding. IMPRESSION: NO SIGNIFICANT RADIOGRAPHIC FINDING IN THE CHEST. TECHNICAL DOCUMENTATION: JOB ID: [id number] [employer] [address]- All Rights Reserved Reading location - IP/workstation name: [email or web address]
--- NOTE | 2018-11-30 17:41 | RADIOLOGY REPORT (SQ) ---
EXAM DESCRIPTION: CT HEAD WITHOUT COMPLETED DATE/TIME: 11/30/2018 5:28 pm REASON FOR STUDY: weakness; slow response COMPARISON: None. TECHNIQUE: Axial images acquired through the brain without intravenous contrast. Images reviewed wi th bone, brain and subdural windows. Additional sagittal and coronal reconstructions were generated. Images stored on PACS. All CT scanners at this facility use dose modulation, iterative reconstruction, and/or weight based d osing when appropriate to reduce radiation dose to as low as reasonably achievable (ALARA). [facility]: Dose Right [facility]: CareDose [facility]: Dose Right [facility]: Teradose 4D [facility]: Smart [employer] RADIATION DOSE: CT Rad equipment meets quality standard of care and radiation dose reduction techniq ues were employed. CTDIvol: 53.2 mGy. DLP: 964 mGy-cm. mGy. LIMITATIONS: None. FINDINGS: VENTRICLES: Normal size and contour. CEREBRUM: No masses. No hemorrhage. No midline shift. No evidence for acute infarction. Normal gra y/white matter differentiation. No areas of low density in the white matter. CEREBELLUM: No masses. No hemorrhage. No alteration of density. No evidence for acute infarction. EXTRAAXIAL SPACES: No fluid collections. No masses. ORBITS AND GLOBE: No intra- or extraconal masses. Normal contour of globe without masses. CALVARIUM: No fracture. PARANASAL SINUSES: No fluid or mucosal thickening. SOFT TISSUES: No mass or hematoma. OTHER: No other significant finding. IMPRESSION: NORMAL BRAIN CT WITHOUT CONTRAST. EVIDENCE OF ACUTE STROKE: NO. COMMENT: Quality ID # [id number]: Final reports with documentation of one or more dose reduction techniques (e.g., Automated exposure control, adjustment of the mA and/or kV according to patient size, use of iterative reconstruction technique) TECHNICAL DOCUMENTATION: JOB ID: [id number] [employer]- All Rights Reserved Reading location - IP/workstation name: [email or web address]
[2018-11-30 17:50] LABS: ALKALINE PHOSPHATASE 85 U/L (38-126); ANION GAP 11 (5-19); ASPARTATE AMINO TRANSFERASE 25 U/L (14-36); BILIRUBIN,DIRECT 0.1 mg/dL (0.0-0.4); BILIRUBIN,TOTAL 0.4 mg/dL (0.2-1.3); BLOOD UREA NITROGEN 13 mg/dL (7-20); CALCIUM 9.6 mg/dL (8.4-10.2); CARBON DIOXIDE 27 mmol/L (22-30); CHLORIDE 101 mmol/L (98-107); GLUCOSE 94 mg/dL (75-110); POTASSIUM 4.3 mmol/L (3.6-5.0); TOTAL PROTEIN 7.4 g/dL (6.3-8.2)
[2018-11-30] MEDS ORDERED: NORMAL SALINE 1000 ML 1,000 ML IV ONE (18:16)
[2018-11-30] MEDS ORDERED: MECLIZINE HCL 25 MG TABLET PO ONE (18:17)
--- NOTE | 2018-11-30 18:22 | ER Document Report ---
ED Dizziness/Weakness - General Chief Complaint: General Weakness Stated Complaint: NOT FEELING WELL,WEAKNESS Time Seen by Provider: 11/30/18 17:01 Notes: Patient is a 38-year-old female who presents to the emergency department with chief complaint of dizziness. Patient states around 1:30 PM this afternoon she was at work when she had a sudden onset of dizziness and lightheadedness. Patient reported that this happened 2 days ago and was able to drink juice and felt better. Patient reports today she did drink some juice which made her feel a little better but she remained slightly dizzy and lightheaded. Patient reports initially her speech was slurred during both of these episodes. Patient reports the last time she had issues with hypoglycemia was when she was years ago. Patient states she did not begin to sweat when she felt dizzy. Patient reports nausea today without vomiting or diarrhea. Patient reports her last menstrual cycle was at the beginning of October and she does have a tubal ligation. Patient denies urinary symptoms. Patient reports she only got 3 hours of sleep last night. Patient reports nothing makes the dizziness worse or better. Patient reports it does not feel like the room is spinning. Patient denies visual changes such as blurred vision or double vision. Patient denies recent illness. Patient denies chest pain shortness of breath. TRAVEL OUTSIDE OF THE [place] IN LAST 30 DAYS: No - Related Data Allergies/Adverse Reactions: No Known Allergies Allergy (Verified 11/30/18 17:02) Past Medical History - General Information source: Patient - Social History Smoking Status: Never Smoker Chew tobacco use (# tins/day): No Frequency of alcohol use: None Drug Abuse: None Lives with: Family Family History: Reviewed & Not Pertinent Patient has suicidal ideation: No Patient has homicidal ideation: No - Past Medical History Cardiac Medical History: Reports: None Pulmonary Medical History: Reports: None EENT Medical History: Reports: None Neurological Medical History: Reports: None Endocrine Medical History: Reports: None Renal/ Medical History: Reports: None. Denies: Hx Peritoneal Dialysis Malignancy Medical History: Reports: None GI Medical History: Reports: None Musculoskeletal Medical History: Reports None Skin Medical History: Reports None Psychiatric Medical History: Reports: None Traumatic Medical History: Reports: None Infectious Medical History: Reports: None Past Surgical History: Reports: Hx Section, Hx Tubal Ligation Review of Systems - Review of Systems Constitutional: See HPI EENT: No symptoms reported Cardiovascular: See HPI Respiratory: No symptoms reported Gastrointestinal: See HPI Genitourinary: No symptoms reported Female Genitourinary: No symptoms reported Musculoskeletal: No symptoms reported Skin: No symptoms reported Hematologic/Lymphatic: No symptoms reported Neurological/Psychological: See HPI Physical Exam - Vital signs Vitals: Temp Pulse BP Pulse Ox 98.9 F 82 138/87 H 97 11/30/18 16:21 10 16:21 11/30/18 16:21 11/30/18 16:21 Interpretation: Normal - Notes Notes: GENERAL: Well-appearing, well-nourished and in no acute distress. HEAD: Atraumatic, normocephalic. EYES: Pupils equal round and reactive to light, extraocular movements intact, sclera anicteric, conjunctiva are normal. ENT: TMs normal, nares patent, oropharynx clear without exudates. Moist mucous membranes. NECK: Normal range of motion, supple without lymphadenopathy or JVD. LUNGS: Breath sounds clear to auscultation bilaterally and equal. No wheezes rales or rhonchi. HEART: Regular rate and rhythm without murmurs, rubs or gallops. ABDOMEN: Soft, nontender, normoactive bowel sounds. No guarding, no rebound. No masses appreciated. BACK: No cervical, thoracic, lumbar midline tenderness. No saddle anesthesia, normal distal neurovascular exam. GENITOURINARY: Deferred. EXTREMITIES: Normal range of motion, no pitting or edema. No clubbing or cyanosis. NEUROLOGICAL: Cranial nerves II through XII grossly intact. Normal speech, normal gait. PSYCH: Normal mood, normal affect. SKIN: Warm, Dry, normal turgor, no rashes or lesions noted. Face symmetric. Tongue protrudes midline. Extraocular motions intact. Pupils are 2 mm and equally reactive. Normal speech, normal gait. 5 out of 5 strength in both the distal and proximal upper and lower extremities bilaterally. Sensation is grossly intact throughout. Finger to nose testing normal. Pronator drift normal. Course - Re-evaluation Re-evalutation: 11/30/18 18:21 Patient had negative neuro examination. Patient claims of generalized weakness. Patient is not weak on one side versus the other. I did visualize the patient walking to the restroom with a steady gait. Will administer IV fluids, give Antivert and repeat a blood glucose. 11/30/18 19:50 Patient reports feeling significantly better. Patient tolerating liquids. Sarmad hernandez's neuro exam remains unremarkable. I did educate the patient in regards to eating small frequent meals throughout the day to help prevent hypoglycemia if this was the cause. Patient reports she is under a lot of stress and does not get much rest or sleep. I did offer a prescription for Antivert. Patient states she does not want any at this time. - Vital Signs Vital signs: Temp Pulse Resp BP Pulse Ox 98.9 F 82 138/87 H 97 11/30/18 16:21 11/30/18 16:21 11/30/18 16:21 11/30/18 16:21 - Laboratory Result Diagrams: 11/30/18 17:17 11/30/18 17:17 Laboratory results interpreted by me: 11/30/18 18:20 Patient's blood work does not show a leukocytosis, anemia, alteration electrodes or kidney function. Patient's liver enzymes are normal. Patient's blood glucose is 94. Laboratory 11/30/18 11/30/18 17:17 17:17 WBC 6.9 RBC 4.40 Hgb 13.4 Hct 39.7 MCV 90 MCH 30.5 MCHC 33.7 RDW 13.1 Plt Count 238 Lymph % (Auto) 29.3 Richardson % (Auto) 8.6 Eos % (Auto) 2.7 Baso % (Auto) 0.4 Absolute Neuts (auto) 4.1 Absolute Lymphs (auto) 2.0 Absolute Monos (auto) 0.6 Absolute Eos (auto) 0.2 Absolute Basos (auto) 0.0 Seg Neutrophils % 59.0 Sodium 138.6 Potassium 4.3 Chloride 101 Carbon Dioxide 27 Anion Gap 11 BUN 13 Creatinine 0.63 Est GFR ( Amer) > 60 Est GFR (MDRD) Non-Af > 60 Glucose 94 Calcium 9.6 Total Bilirubin 0.4 Direct Bilirubin 0.1 Neonat Total Bilirubin Not Reportable Neonat Direct Bilirubin Not Reportable Neonat Indirect Bili Not Reportable AST 25 ALT 29 Alkaline Phosphatase 85 Total Protein 7.4 Albumin 4.0 - Diagnostic Test Radiology results interpreted by me: 11/30/18 18:[address] 11/30/18 17:08 IMPRESSION: NORMAL BRAIN CT WITHOUT CONTRAST. EVIDENCE OF ACUTE STROKE: NO. Chest X-Ray 11/30/18 17:09 IMPRESSION: NO SIGNIFICANT RADIOGRAPHIC FINDING IN THE CHEST. - EKG Interpretation by Me Additional EKG results interpreted by me: 11/30/18 20:24 Patient's EKG shows a sinus rhythm with a heart rate of 65, NH interval is 220, QT 416 and QTc is 433. Patient has a normal axis deviation without ST segment changes in consecutive leads. There is no EKG for comparison. Discharge - Discharge Clinical Impression: Weakness, Dizziness Condition: Stable Disposition: HOME, SELF-CARE Additional Instructions: Today you are seen in the emergency department for dizziness and lightheadedness. We did obtain blood work, urinalysis, head CT and chest x-ray which was negative for any abnormality. Your blood work was reassuring. After receiving a liter of fluids report that your symptoms have improved. It is unsure what has caused her symptoms, it could have been possible dehydration or low blood sugar. Please eat small frequent meals throughout the day to make sure that you are drinking plenty of fluids to stay hydrated. Please return to the emergency department if he develops your severe headache, severe dizziness, passing out, chest pain or shortness of breath or any worsening signs or symptoms. DIZZINESS: Under normal circumstances, your sense of balance is controlled by a number of signals that your brain receives from several locations: Eyes. No matter what your position, visual signals help you determine where your body is in space and how it's moving. Sensory nerves. These are in your skin, muscles and joints. Sensory nerves send messages to your brain about body movements and positions. Inner ear. The organ of balance in your inner ear is the vestibular labyrinth. It includes loop-shaped structures (semicircular canals) that contain fluid and fine, hair-like sensors that monitor the rotation of your head. Near the semicircular canals are the utricle and saccule, which contain tiny particles called otoconia ([id number]). These particles are attached to sensors that help detect gravity and [id number] motion. Good balance depends on at least two of these three sensory systems working well. For instance, closing your eyes while washing your hair in the shower doesn't mean you'll lose your balance. Signals from your inner ear and sensory nerves help keep you upright. However, if your central nervous system can't process signals from all of these locations, if the messages are contradictory, or if the sensory systems aren't functioning properly, you may experience loss of balance. Dizziness may have a number of potential causes. These may include: Vertigo Vertigo - the false sense of motion or spinning - is the most common symptom of dizziness. Sitting up or moving around may make it worse. Sometimes vertigo is severe enough to cause nausea and vomiting. Vertigo usually results from a problem with the nerves and the structures of the balance mechanism in your inner ear (vestibular system), which sense movement and changes in your head position. Abnormal rhythmic eye movements (nystagmus) almost always accompany vertigo. Causes of vertigo may include: Benign paroxysmal positional vertigo (BPPV). BPPV involves intense, brief episodes of vertigo associated with a change in the position of your head, often when you turn over in bed or sit up in the morning. It occurs when normal calcium carbonate crystals (otoconia) break loose and fall into the wrong part of the canals in your inner ear. When these particles shift, they stimulate sensors in your ear, producing an episode of vertigo. Doctors don't know what causes BPPV, but it may be a natural result of aging. Trauma to your head also may lead to BPPV. Inflammation in the inner ear. Signs and symptoms of inflammation of the inner ear (acute vestibular neuronitis or labyrinthitis) include sudden, intense vertigo that may persist for several days, with nausea and vomiting. It can be incapacitating, requiring bed rest to minimize the signs and symptoms. Fortunately, vestibular neuronitis generally subsides and clears up on its own. Recovery time may be shorter with vestibular rehabilitation exercises. Although the cause of this condition is unknown, it may be a viral infection. Meniere's disease. This disease involves the excessive buildup of fluid in your inner ear. It may affect adults at any age and is characterized by sudden episodes of vertigo lasting 30 minutes to an hour or longer. Other signs and symptoms include the feeling of fullness in your ear, buzzing or ringing in your ear (tinnitus), and fluctuating hearing loss. The cause of Meniere's disease is unknown. Vestibular migraine. People who experience a vestibular migraine are very sensitive to motion. Dizziness and vertigo caused by a vestibular migraine may be triggered by turning your head quickly, being in a crowded or confusing place, driving or riding in a vehicle, or even watching movement on TV. A vestibular migraine may cause feelings of imbalance or unsteadiness, hearing loss, "muffled" hearing, or ringing in your ears (tinnitus). For most people with a vestibular migraine, vertigo doesn't necessarily happen at the same time as the headache. Instead, typical migraine triggers may lead to vertigo without an actual migraine. Attacks of migrainous vertigo can last from a few minutes to several days. Acoustic neuroma. An acoustic neuroma (schwannoma) is a noncancerous (benign) growth on the acoustic nerve, which connects the inner ear to your brain. Signs and symptoms of an acoustic neuroma may include dizziness, loss of balance, hearing loss and tinnitus. Rapid changes in motion. Riding on roller coasters or in boats, cars or even airplanes may on occasion make you dizzy. Other causes. Rarely, vertigo can be a symptom of a more serious neurological problem such as a stroke, brain hemorrhage or multiple sclerosis. Feeling of faintness (presyncope) "Presyncope" is the medical term for feeling faint and lightheaded without losing consciousness. Sometimes nausea, pale skin and a sense of dizziness accompany a feeling of faintness. Causes of presyncope include: Drop in blood pressure (orthostatic hypotension). A dramatic drop in your s ystolic blood pressure - the higher number in your blood pressure reading - may result in lightheadedness or a feeling of faintness. It can occur after sitting up or standing too quickly. Inadequate output of blood from the heart. Conditions such as partially blocked arteries (atherosclerosis), disease of the heart muscle (cardiomyopathy), abnormal heart rhythm (arrhythmia) or a decrease in blood volume may cause inadequate blood flow from your heart. Loss of balance (disequilibrium) Disequilibrium is the loss of balance or the feeling of unsteadiness when you walk. Causes may include: Inner ear (vestibular) problems. Abnormalities with your inner ear can cause you to feel like you are floating, have a heavy head or are unsteady in the dark. Sensory disorders. Failing vision and nerve damage in your legs (peripheral neuropathy) are common in older adultsand may result in difficulty maintaining your balance. Joint and muscle problems. Muscle weakness and osteoarthritis - the type of arthritis that involves wear and tear of your joints - can contribute to loss of balance when it involves your weight-bearing joints. Medications. Loss of balance can be a side effect of certain medications, such as anti-seizure drugs, sedatives and tranquilizers. Lightheadedness and other kinds of dizziness Feeling lightheaded is the feeling of being "spaced out" or having the sensation of spinning inside your head. It can also give you the sensation that if your lightheadedness worsens, you might lose consciousness. Causes may include: Inner ear disorders. These abnormalities of your inner ear can lead to illusions of motion and make you feel like you're floating. Anxiety disorders. Certain anxiety disorders, such as panic attacks and a fear of leaving home or being in large, open spaces (agoraphobia), may cause lightheadedness. Hyperventilation. Abnormally rapid breathing that often accompanies anxiety disorders may make you feel lightheaded. NORMAL EXAM AND WORKUP: At this time, your examination and workup show no significant abnormality. No significant abnormal physical findings were noted. All laboratory, EKG, and imaging (x-ray, CT scans, ultrasound) studies that were ordered show no significant abnormality. Although your examination and all studies that were ordered showed no significant abnormal finding, there are no examinations and no studies that are 100% accurate. There is always the possibility that some abnormality could exist and not be detected with physical examination or within the limits and capabilities of laboratory and other studies. You should return or follow up as you were instructed on your visit today for further evaluation if your symptoms do not resolve. MECLIZINE: You are to take meclizine (Antivert) for control of symptoms. This is a drug of the antihistamine family which is useful for controlling nausea, dizziness, and motion sickness. Meclizine is usually taken three times a day, as needed. It's more effective at preventing symptoms than at relieving severe symptoms once they occur. It can be taken BEFORE activities which are likely to cause dizziness or nausea. Common side effects of this medicine are drowsiness and dry mouth. You should use caution in driving or operating machinery while taking this medication. In particular, you should not drive long distances or drive at night while taking this medicine. Meclizine should not be combined with alcohol, narcotics, or sedative medications without consulting your physician. ANTINAUSEA MEDICATION: You have been given a medication to suppress nausea and vomiting. This type of medication can be given as a shot, pill, or suppository. It will usually last for many hours. Pills and shots usually last six to eight hours, suppositories last about 12 hours. For the typical illness, only one or two doses of the medication may be necessary. Mild lightheadedness may occur. This type of medicine can cause drowsiness. Do not drive or operate dangerous machinery while under its influence. Do not mix with alcohol. See your doctor at once if you have muscle spasms or tightness, or uncontrollable motions (particularly of the neck, mouth, or jaw). Persistent vomiting or severe lightheadedness should also be evaluated by the physician. FOLLOW-UP CARE: If you have been referred to a physician for follow-up care, call the physicians office for an appointment as you were instructed or within the next two days. If you experience worsening or a significant change in your symptoms, notify the physician immediately or return to the Emergency Department at any time for re-evaluation. Forms: Return to Work
[2018-11-30 19:50] LABS: APPEARANCE,URINE CLEAR; BILIRUBIN,URINE NEGATIVE (NEGATIVE); COLOR,URINE YELLOW; GLUCOSE, URINE NEGATIVE (NEGATIVE); KETONES,URINE NEGATIVE (NEGATIVE); LEUKOCYTE ESTERASE,URINE NEGATIVE (NEGATIVE); NITRITE,URINE NEGATIVE (NEGATIVE); PROTEIN,URINE NEGATIVE (NEGATIVE); URINE SPECIFIC GRAVITY 1.023; UROBILINOGEN,URINE NEGATIVE mg/dL (<2.0)
--- NOTE | 2018-12-01 07:50 | EKG REPORT ---
SEVERITY:- ABNORMAL ECG - SINUS RHYTHM FIRST DEGREE AV BLOCK : Confirmed by: Marshall Jain MD 01-Dec-2018 07:49:20
== END 2018-11-30 20:35 | disposition home or self-care (01) ==
LOC: ER 16:14
DX: R42 Dizziness and giddiness (principal); R53.1 Weakness; R61 Generalized hyperhidrosis; R11.0 Nausea; Z86.39 Personal history of other endocrine, nutritional and metabolic disease; Z98.51 Tubal ligation status
CPT/HCPCS: 93005; 36415; 85025; 81025; 80053; 81001; 71045; 70450; 93010; J7030; 96360; 96361; 99284

== ENCOUNTER 2019-09-15 19:17 | Emergency (ER) | payer MEDICAID ==
--- NOTE | 2019-09-15 22:27 | ER Document Report ---
ED General - General Chief Complaint: Medical Clearance Stated Complaint: IN CONTACT WITH +COVID Time Seen by Provider: 09/15/19 21:22 Primary Care Provider: NATALIE JARA PA-C [Primary Care Provider] - Follow up as needed TRAVEL OUTSIDE OF THE [place] IN LAST 30 DAYS: No - HPI Notes: Chief complaint: COVID-19 virus exposure History of present illness: Previously healthy 39-year-old female taking no known medications and with no known allergies comes here requesting COVID-19 testing because of possible exposure at work. Patient states that she works at [employer]. 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 Patient is totally asymptomatic. Specifically she denies respiratory symptoms, fever, changes in taste or smell, chills, skin rashes, nausea vomiting or diarrhea. - Related Data Allergies/Adverse Reactions: No Known Allergies Allergy (Verified 11/30/18 17:02) Past Medical History - General Information source: Patient, [facility] Records - Social History Smoking Status: Never Smoker Chew tobacco use (# tins/day): No Frequency of alcohol use: None Drug Abuse: None Family History: Reviewed & Not Pertinent Renal/ Medical History: Denies: Hx Peritoneal Dialysis Past Surgical History: Reports: Hx Section, Hx Tubal Ligation Review of Systems - Review of Systems Notes: Constitutional: Negative for fever. HENT: Negative for sore throat. Eyes: Negative for visual changes. Cardiovascular: Negative for chest pain. Respiratory: Negative for shortness of breath. Gastrointestinal: Negative for abdominal pain, vomiting or diarrhea. Genitourinary: Negative for dysuria. Musculoskeletal: Negative for back pain. Skin: Negative for rash. Neurological: Negative for headaches, weakness or numbness. 10 point ROS negative except as marked above and in HPI. Physical Exam - Vital signs Vitals: Temp Pulse Resp BP Pulse Ox 98.3 F 79 18 126/80 H 100 09/15/19 21:31 09/15/19 21:31 09/15/19 21:31 09/15/19 21:31 09/15/19 21:31 - Notes Notes: Remote Exam Using Telemedicine System for mitigation of COVID-19 exposure risk GENERAL: Well-developed well-nourished middle-aged female appearing in no acute distress. SKIN: Patient has some mild erythematous rash over the cheek area bilaterally consistent with known prior history of rosacea. HEAD: Normocephalic atraumatic. EYES: PERRL. EOMI. Conjunctivae and sclerae clear. NOSE: CLEAR. MOUTH: Moist mucosa. Good dentition. No stridor or edema. No drooling. NECK: Full ROM. No visible masses or thyromegaly. No JVD. BACK: Symmetrical. CHEST: Respirations unlabored. Expands symmetrical. ABDOMEN: Mildly obese. Non-distended. GENITALIA: Deferred. EXTREMITIES: No edema. NEUROLOGICAL: GCS 15. Alert and oriented x3. Normal gait. Fluent speech. Cranial nerves II through XII intact. Motor and cerebellar normal. PSYCHIATRIC: Appropriate affect. Course - Re-evaluation Re-evalutation: 09/15/19 22:26 Patient will receive nasal swab screening for COVID-19 virus. I explained to her that this will take 72 hours to be reported. I recommended self-isolation at home pending notification of the results of the testing. Findings, clinical impression and plan of treatment have been discussed with patient/family. Understanding of current findings and recommendations has been acknowledged by them and there is agreement regarding disposition and follow-up. - Vital Signs Vital signs: Temp Pulse Resp BP Pulse Ox 98.3 F 79 18 126/80 H 100 09/15/19 21:31 09/15/19 21:31 09/15/19 21:31 09/15/19 21:31 09/15/19 21:31 Discharge - Discharge Clinical Impression: Exposure to COVID-19 virus Condition: Stable Disposition: HOME, SELF-CARE Forms: Return to Work Referrals: NATALIE JARA PA-C [Primary Care Provider] - Follow up as needed
[2019-09-15 23:22] VITALS: BP 123/85
== END 2019-09-15 23:22 | disposition home or self-care (01) ==
LOC: ER 19:17
DX: Z20.828 Contact with and (suspected) exposure to other viral communicable diseases (principal); R21 Rash and other nonspecific skin eruption
CPT/HCPCS: 99282; 87635; C9803

== ENCOUNTER → 2020-01-12 | Outpatient (CLI) | payer MEDICAID ==
[2020-01-12 14:28] VITALS: BP 111/68
--- NOTE | 2020-01-12 14:28 | ER RDC ASSESSMENT REPORT ---
Intake - In the Last 14 days Have you traveled outside [place]?: No Have you been in close contact with someone CONFIRMED: No Worked in Healthcare?: No - Symptoms Subjective Fever([place] feverish): No Chills: No Muscule Aches: No Runny Nose: No Sore Throat: No Cough (New or worsening chronic cough): No Shortness of breath: No Nausea or Vomiting: No Headache: No Abdominal Pain: No Diarrhea(3 or more loose stools in last 24 hours): No - Do you have any of the following Chronic lung disease: Asthma or emphysema or COPD: No Cystic Fibrosis: No Diabetes: No High Blood Pressure: No Cardiovascular Disease: No Chronic Kidney Disease: No Chronic Liver Disease: No Chronic blood disorder like Sickle Cell Disease: No Weak immune system due to disease or medication: No Neurologic condition that limits movement: No Developmental delay - Moderate to Severe: No Recent (within past 2 weeks) or current : No Morbid Obesity (>100 pounds over ideal weight): No - Objective Temperature: 98.6 F Pulse Rate: 78 Respiratory Rate: 18 Blood Pressure: 111/68 O2 Sat by Pulse Oximetry: 95 Objective: Given above, testing performed: covid Disposition: Home; Selfcare General - General Stated Complaint: covid test Time Seen by Provider: 01/12/20 13:30 Mode of Arrival: Ambulatory - [facility] Notes: 39-year-old female presents to [facility] clinic for COVID-19 testing. Patient reports no direct exposure to Covid positive individual; however, patient's son has a classmate that tested positive and her work is requiring clear Covid test for her to return. Patient denies any symptoms. - Related Data Allergies/Adverse Reactions: No Known Allergies Allergy (Verified 11/30/18 17:02) Past Medical History - General Information source: Patient - Social History Smoking Status: Never Smoker Family History: Reviewed & Not Pertinent - Past Medical History Cardiac Medical History: Reports: None Pulmonary Medical History: Reports: None EENT Medical History: Reports: None Neurological Medical History: Reports: None Endocrine Medical History: Reports: None Renal/ Medical History: Reports: None. Denies: Hx Peritoneal Dialysis Malignancy Medical History: Reports: None GI Medical History: Reports: None Musculoskeletal Medical History: Reports None Skin Medical History: Reports None Psychiatric Medical History: Reports: None Traumatic Medical History: Reports: None Infectious Medical History: Reports: None Past Surgical History: Reports: Hx Section, Hx Tubal Ligation Physical Exam - General General appearance: Appears well, Alert In distress: None Notes: PHYSICAL EXAMINATION: GENERAL: Well-appearing and in no acute distress. HEAD: Atraumatic, normocephalic. EYES: sclera anicteric, conjunctiva are normal. ENT: nares patent. Moist mucous membranes. NECK: Normal range of motion, supple without lymphadenopathy. LUNGS: No increased work of breathing. Lung sounds CTAB and equal. No wheezes rales or rhonchi. HEART: Regular rate and rhythm without murmurs. ABDOMEN: Soft, nontender, normal bowel sounds, no guarding. EXTREMITIES: Normal range of motion, no pitting edema. No cyanosis. NEUROLOGICAL: A&O x 3. Normal speech. PSYCH: Normal mood, normal affect. SKIN: Warm, Dry, normal turgor, no rashes or lesions noted Patient Education/Counseling Counseling/Education: Patient presents for COVID 19 testing after possible secondary exposure to another person who has tested positive for COVID 19. Patient is asymptomatic at this time. Patient does not have emergency worrying symptoms such as difficulty breathing, shortness of breath, chest pain, pressure, confusion or cyanosis. Patient appears suitable for discharge as vital signs are stable and patient is nontoxic in appearance. Good return precautions have been discussed with patient, patient verbalized understanding and is agreeable with discharge plan of care at this time. Guidance for worsening S/SX: As a person under investigation for Covid 19, the [place] department of Health and Human Services, division of public health advises you to adhere to the following guidance until your test results are reported to you. If your test result is positive, you will receive additional information from your provider and your local health department at that time. Remain at home until you are cleared by the health provider or public health authorities. Keep a log of visitors to your home, notify any visitors to your home of your isolation status. If you plan to move to a new address or leave the county, notify the local health department in your County. Call your doctor or seek care if you have an urgent medical need. Before seeking medical care, call ahead to get instructions from the provider before arriving at the medical office clinic or hospital. Notify them that you are being tested for the virus that causes Covid 19 so that arrangements can be made, as necessary, to prevent transmission to others in the healthcare setting. Next, notify the local health department in your county. If a medical emergency arises and you need to call 911, inform the first responders that you are being tested for the virus that causes Covid 19. Next, notify the local health department in your county. RDC Discharge - Discharge Clinical Impression: Encounter for screening laboratory testing for COVID-19 virus in asymptomatic patient Condition: Good Disposition: Home; Selfcare
== END ==
LOC: RDC 12:46
PROVIDERS: ATTEND Registered Nurse
DX: Z20.828 Contact with and (suspected) exposure to other viral communicable diseases (principal)
CPT/HCPCS: 87635; 99201; 99211; C9803

== ENCOUNTER 2020-02-25 23:15 | Emergency (ER) | payer MEDICAID ==
[2020-02-25] MEDS ORDERED: IBUPROFEN 800 MG TABLET PO ONE (23:31)
--- NOTE | 2020-02-25 23:32 | ER Document Report ---
ED Medical Screen (RME) - General Chief Complaint: Low Back Pain Stated Complaint: RIGHT LOWER BACK PAIN Time Seen by Provider: 02/25/20 23:27 Primary Care Provider: NATALIE JARA PA-C [Primary Care Provider] - Follow up as needed Notes: Patient presents complaining of right flank pain off and on for the past 6 months. Patient feels that pain worsened tonight. Patient denies any fever, nausea, vomiting or urinary symptoms. Patient without any chronic medical problems. I have greeted and performed a rapid initial assessment of this patient. A comprehensive ED assessment and evaluation of the patient, analysis of test results and completion of the medical decision making process will be conducted by additional ED providers. TRAVEL OUTSIDE OF THE [place] IN LAST 30 DAYS: No - Related Data Allergies/Adverse Reactions: No Known Allergies Allergy (Verified 11/30/18 17:02) Past Medical History Renal/ Medical History: Denies: Hx Peritoneal Dialysis Past Surgical History: Reports: Hx Section, Hx Tubal Ligation Physical Exam - Back Back: CVA tenderness - Right Doctor's Discharge - Discharge Referrals: NATALIE JARA PA-C [Primary Care Provider] - Follow up as needed
[2020-02-25 23:41] VITALS: BP 126/84
== END 2020-02-26 03:30 | disposition left against medical advice (07) ==
LOC: ER 23:15
DX: M54.5 Low back pain (principal); Z53.20 Procedure and treatment not carried out because of patient's decision for unspecified reasons
CPT/HCPCS: 99281; J3490